=== PATIENT | female | born 1945 | race Caucasian/White ===

== ENCOUNTER 2020-07-15 06:16 | Emergency (ER) | payer MEDICARE ==
--- NOTE | 2020-07-15 07:29 | ER Document Report ---
Entered by GIACOMO ORDAZ SCRIBE 07/15/20 0643 Acting as scribe for:DEBBIE HERRERA MD ED General - General Stated Complaint: VOMITING,DIARRHEA, WEAKNESS Time Seen by Provider: 07/15/20 06:39 Primary Care Provider: ANN-MARIE GARNER FNP-C [Primary Care Provider] - Follow up as needed Mode of Arrival: Ambulatory Information source: Patient Notes: This 75 year old female patient presents to the emergency department today with complaints of a 3-day history of generalized weakness, nausea, vomiting, and diarrhea which began yesterday. Daughter at bedside reports that the last time the patient had symptoms similar to this she was diagnosed with urosepsis. Daughter reports the patient had an ultrasound of some sort scheduled yesterday by urology but she was unable to make the appointment. Patient is on Coumadin for "2 inoperable brain aneurysms". - Related Data Allergies/Adverse Reactions: aspirin Allergy (Verified 07/15/20 06:55) aztreonam Allergy (Verified 07/15/20 06:55) Cephalosporins Allergy (Verified 07/15/20 06:55) clonazepam Allergy (Verified 07/15/20 06:55) colchicine Allergy (Verified 07/15/20 06:55) nitrofurantoin [From Macrobid] Allergy (Verified 07/15/20 06:55) NSAIDS (Non-Steroidal Anti-Inflamma Allergy (Verified 07/15/20 06:55) Penicillins Allergy (Verified 07/15/20 06:55) Sulfa (Sulfonamide Antibiotics) Allergy (Verified 07/15/20 06:55) Tetanus Vaccines and Toxoid Allergy (Verified 07/15/20 06:55) Past Medical History - General Information source: Patient - Social History Smoking Status: Former Smoker - quit 20-25 years ago Cigarette use (# per day): No Frequency of alcohol use: None Drug Abuse: None Lives with: Family Family History: Reviewed & Not Pertinent Neurological Medical History: Reports: Hx Cerebrovascular Accident - also two inoperable brain aneurysm, Hx Seizures Endocrine Medical History: Reports: Hx Hypothyroidism Traumatic Medical History: Reports: Hx Fractures - back, right wrist Past Surgical History: Reports: Hx Appendectomy, Hx Hysterectomy, Hx Orthopedic Surgery - right wrist surgery, back surgery possibly kyphoplasty Review of Systems - Review of Systems Constitutional: See HPI, Weakness EENT: No symptoms reported Cardiovascular: No symptoms reported Respiratory: No symptoms reported Gastrointestinal: See HPI, Diarrhea, Nausea, Vomiting Genitourinary: No symptoms reported Female Genitourinary: No symptoms reported Musculoskeletal: No symptoms reported Skin: No symptoms reported Hematologic/Lymphatic: No symptoms reported Neurological/Psychological: No symptoms reported -: Yes All other systems reviewed and negative Physical Exam - Vital signs Vitals: Temp Pulse Resp BP Pulse Ox 97.6 F 83 18 184/76 H 100 07/15/20 06:27 07/15/20 06:27 07/15/20 06:27 07/15/20 06:27 07/15/20 06:27 - Notes Notes: Physical Exam: General: Alert, appears well. HEENT: Normocephalic. Atraumatic. PERRL. Extraocular movements intact. Oropharynx clear. Wearing upper/lower dentures. Neck: Supple. Non-tender. Respiratory: No respiratory distress. Clear and equal breath sounds bilaterally. Cardiovascular: Regular rate and rhythm. Abdominal: Obese. Non-tender. No distension. Normal Bowel Sounds. Back: No gross abnormalities. Extremities: Moves all four extremities. Upper extremities: Normal inspection. Normal ROM. Lower extremities: Normal inspection. No edema. Normal ROM. Neurological: Normal cognition. AAOx4. Normal speech. Psychological: Normal affect. Normal Mood. Skin: Warm. Dry. Normal color. Course - Re-evaluation Re-evalutation: 07/15/20 09:46 Patient CBC, Chem-12, CRP, D-dimer, troponin, and urinalysis are unremarkable. The patient is anticoagulated with an INR of 2.62. There is no clear explanation for her symptoms of weakness and fatigue. - Vital Signs Vital signs: Temp Pulse Resp BP Pulse Ox 97.7 F 60 14 164/74 H 96 07/15/20 07:11 07/15/20 07:11 07/15/20 07:11 07/15/20 07:11 07/15/20 07:11 - Laboratory Results Result Diagrams: 07/15/20 07:54 07/15/20 07:54 Laboratory Results Interpreted: 07/15/20 07/15/20 07/15/20 07:46 07:54 07:54 RBC 3.48 L Hgb 10.3 L Hct 29.7 L RDW 14.3 H Lymph % (Auto) 8.7 L Seg Neutrophils % 82.5 H PT 27.9 H Sodium Chloride Anion Gap Est GFR (MDRD) Non-Af Creatine Kinase Urine Ascorbic Acid 40 H 07/15/20 07:54 RBC Hgb Hct RDW Lymph % (Auto) Seg Neutrophils % PT Sodium 127.9 L Chloride 94 L Anion Gap 4 L Est GFR (MDRD) Non-Af 57 L Creatine Kinase 22 L Urine Ascorbic Acid Critical Laboratory Results Reviewed: No Critical Results - Radiology Results Radiology Results Interpreted: 07/15/20 09:52 Chest x-ray shows a cardiac loop recorder. No evidence of acute cardiopulmonary process. Critical Radiology Results Reviewed: No Critical Results - EKG Interpretation by Oh EKG shows normal: Sinus rhythm, [place], Intervals, QRS Complexes, ST-T Waves Rate: Normal - 60 Rhythm: NSR [place]/QRS: IVCD Voltage: Consistent with LVH When compared to previous EKG there are: Previous EKG unavailable Discharge - Discharge Clinical Impression: Weakness Fatigue Qualifiers: Fatigue type: unspecified Qualified Code(s): R53.83 - Other fatigue Condition: Stable Disposition: HOME, SELF-CARE Additional Instructions: Weakness We did not find a definite cause for your weakness. This may require further medical tests. Weakness can be caused by infection, physical exhaustion, rapid weight loss, dehydration, or medicine side effects. Diseases of the muscles, heart, nerves, and blood vessels can make you weak. Sometimes the problem is simply depression or lack of exercise. You should get plenty of rest. Unless the doctor tells you otherwise, it's usually best to add short periods of regular mild exercise. Eat a nutritious diet with multiple small, low-sugar meals. If symptoms continue, additional medical evaluation will be necessary. Be sure to follow up as instructed. If you become very dizzy, nauseated, or feel like you're going to faint, lie down right away. Wait until the symptoms have passed before you get up again. Stand up slowly. Call the doctor or return if you develop chest pain, abdominal pain, severe headache, irregular heartbeat or very fast pulse, confusion, vision problems, fever, muscular pain, or any other new symptom. Fatigue Fatigue can be caused by many medical and emotional problems. Fatigue can be an early symptom of infection, or can be caused by chronic infection. It can be a symptom of metabolic diseases like diabetes, hypothyroidism, or anemia. It can result from sleep problems such as sleep apnea. Fatigue can be a symptom of depression. Overuse of alcohol or caffeine can cause fatigue. Many drugs can cause fatigue, either as a side effect or when withdrawing from the drug. Until the evaluation is complete, try to keep up your normal activities. Get regular sleep hours, but avoid oversleeping. Try to get regular exercise. Eliminate alcohol, caffeine, and any unnecessary drugs, herbs, or medicines (discuss any changes in prescription medicines with your doctor). Contact the doctor if there is any change for the worse. No obvious explanation for your symptoms of weakness and fatigue were found today. Often the symptoms can be caused by mild depression, which is frequently worsened in the wintertime and when the weather is bad. Follow-up with your primary care provider if not improving. RETURN TO THE EMERGENCY ROOM IF ANY NEW OR WORSENING SYMPTOMS. Prescriptions: Ondansetron [Zofran Odt 4 mg Tablet] 1 - 2 tab PO Q4H PRN #20 tab.rapdis PRN Reason: Referrals: ANN-MARIE GARNER, [facility] [Primary Care Provider] - Follow up as needed I personally performed the services described in the documentation, reviewed and edited the documentation which was dictated to the scribe in my presence, and it accurately records my words and actions.
[2020-07-15 08:09] LABS: APPEARANCE,URINE CLEAR; BILIRUBIN,URINE NEGATIVE (NEGATIVE); COLOR,URINE YELLOW; GLUCOSE, URINE NEGATIVE (NEGATIVE); KETONES,URINE NEGATIVE (NEGATIVE); LEUKOCYTE ESTERASE,URINE NEGATIVE (NEGATIVE); NITRITE,URINE NEGATIVE (NEGATIVE); PROTEIN,URINE NEGATIVE (NEGATIVE); URINE SPECIFIC GRAVITY 1.014; UROBILINOGEN,URINE NEGATIVE mg/dL (<2.0)
--- NOTE | 2020-07-15 08:18 | RADIOLOGY REPORT (SQ) ---
EXAM DESCRIPTION: CHEST SINGLE VIEW IMAGES COMPLETED DATE/TIME: 07/15/2020 7:35 am REASON FOR STUDY: Nausea, vomiting, diarrhea, weakness, COMPARISON: None. EXAM PARAMETERS: NUMBER OF VIEWS: One view. TECHNIQUE: Single frontal radiographic view of the chest acquired. RADIATION DOSE: NA LIMITATIONS: None. FINDINGS: LUNGS AND PLEURA: No opacities, masses or pneumothorax. No pleural effusion. MEDIASTINUM AND HILAR STRUCTURES: No masses. Contour normal. HEART AND VASCULAR STRUCTURES: Mild cardiomegaly without central vascular congestion. BONES: No acute findings. HARDWARE: Cardiac loop recorder. OTHER: No other significant finding. IMPRESSION: No discrete radiographic evidence of acute cardiopulmonary abnormality. TECHNICAL DOCUMENTATION: JOB ID: [id number] 2010 [employer]- All Rights Reserved Reading location - IP/workstation name: [email or web address]
[2020-07-15 08:23] LABS: ABSOLUTE LYMPHOCYTES (AUTO) 0.5 10^3/uL (0.5-4.7); ABSOLUTE MONOCYTES (AUTO) 0.5 10^3/uL (0.1-1.4); ABSOLUTE NEUT (AUTO) 4.7 10^3/uL (1.7-8.2); BASOPHILS % (AUTO) 0.5 % (0-2); EOSINOPHILS % (AUTO) 0.3 % (0-6); HEMATOCRIT 29.7 % (36.0-47.0); HEMOGLOBIN 10.3 g/dL (12.0-15.5); LYMPHOCYTES % (AUTO) 8.7 % (13-45); MEAN CORPUSCULAR HEMOGLOBIN 29.6 pg (27.0-33.4); MEAN CORPUSCULAR HGB CONC 34.6 g/dL (32.0-36.0); MEAN CORPUSCULAR VOLUME 85 fl (80-97); PLATELET COUNT 175 10^3/uL (150-450); RED BLOOD COUNT 3.48 10^6/uL (3.72-5.28); RED CELL DISTRIBUTION WIDTH 14.3 % (11.5-14.0); SEGMENTED NEUTROPHILS % (AUTO) 82.5 % (42-78); TOTAL CELLS COUNTED % (AUTO) 100 %; WHITE BLOOD COUNT 5.7 10^3/uL (4.0-10.5)
--- NOTE | 2020-07-15 08:33 | EKG REPORT ---
SEVERITY:- ABNORMAL ECG - SINUS RHYTHM NONSPECIFIC INTRAVENTRICULAR CONDUCTION DELAY PROBABLE LEFT VENTRICULAR HYPERTROPHY : Confirmed by: Cynthia Hurley MD 15-Jul-2020 08:32:57
[2020-07-15 08:35] LABS: INTERNATIONAL RATION (INR) 2.62; PROTHROMBIN TIME 27.9 SEC (11.4-15.4)
[2020-07-15 08:42] LABS: ALBUMIN 3.9 g/dL (3.5-5.0); ALKALINE PHOSPHATASE 69 U/L (38-126); ASPARTATE AMINO TRANSFERASE 23 U/L (14-36); BILIRUBIN,DIRECT 0.2 mg/dL (0.0-0.4); BILIRUBIN,TOTAL 0.5 mg/dL (0.2-1.3); BLOOD UREA NITROGEN 18 mg/dL (7-20); CARBON DIOXIDE 30 mmol/L (22-30); CHLORIDE 94 mmol/L (98-107); CREATINE KINASE 22 U/L (30-135); GLUCOSE 109 mg/dL (75-110); POTASSIUM 4.8 mmol/L (3.6-5.0); TOTAL PROTEIN 6.4 g/dL (6.3-8.2)
[2020-07-15 08:55] LABS: ANION GAP 4 (5-19)
[2020-07-15] MEDS ORDERED: ONDANSETRON HCL INJ/PF 4 MG/2 ML SDV IV ONE (08:59)
[2020-07-15] MEDS ORDERED: NORMAL SALINE 1000 ML 1,000 ML IV ONE (08:59)
[2020-07-15] MEDS ORDERED: DEXTROSE 5%-LACTATED RINGERS 1,000 ML IV ONE (09:00)
[2020-07-15 11:28] VITALS: BP 160/70
== END 2020-07-15 11:10 | disposition home or self-care (01) ==
LOC: ER 06:16
DX: R53.1 Weakness (principal); R53.83 Other fatigue; R19.7 Diarrhea, unspecified; R11.2 Nausea with vomiting, unspecified; Z79.01 Long term (current) use of anticoagulants; Z88.8 Allergy status to other drugs, medicaments and biological substances; Z88.0 Allergy status to penicillin; Z88.2 Allergy status to sulfonamides; Z87.891 Personal history of nicotine dependence
CPT/HCPCS: 93005; 99285; 96361; 96374; 36415; 87040; 87086; 82550; 83735; 85025; 85610; 86140; 80053; 81001; 84484; 85379; 71045; 93010; J2405; J7121